=== PATIENT | male | born 1955 | race Two or more races ===

== ENCOUNTER 2023-06-06 07:07 | Outpatient (CLI) | payer OTHER | END 2023-06-06 07:13 | disposition home or self-care (01) | LOC: RX STUDY 07:07 | PROVIDERS: ATTEND Internal Medicine Gastroenterology | DX: Z86.010 Personal history of colon polyps (principal); K22.5 Diverticulum of esophagus, acquired; K57.30 Diverticulosis of large intestine without perforation or abscess without bleeding; K76.0 Fatty (change of) liver, not elsewhere classified; K21.9 Gastro-esophageal reflux disease without esophagitis ==